=== PATIENT | female | born 1990 | race Caucasian/White ===

== ENCOUNTER → 2017-06-02 | Day surgery (SDC) | payer BC ==
[2017-05-24 14:57] VITALS: BMI 49.0
--- NOTE | 2017-05-24 15:19 | PAT Medication Instructions ---
Service Date May 24, 2017. Current Home Medication List Control Pills ( Control Pills), 1 TAB PO QAM Ibuprofen (Advil), 400 MG PO PRN Medication Instructions For Your Scheduled Surgery - Hold the following medications the morning of surgery: Ibuprofen (Advil), 400 MG PO PRN (otherwise okay to continue per surgeon) - Take the following medications the morning of surgery with a sip of water OTHERWISE NOTHING TO EAT OR DRINK AFTER MIDNIGHT: Control Pills ( Control Pills), 1 TAB PO QAM If you have any questions please call us at [phone] or [phone] or [phone]
[2017-05-24 16:08] LABS: BASO % 0.1 %; BASO ABS # 0.01 K/uL (0-0.2); COMPLETE YES; EOS % 1.8 %; HEMATOCRIT 40.3 % (37-47); IG% 0.1 %; LYMPH % 27.2 %; LYMPH ABS # 2.02 K/uL (1.2-3.4); MEAN CELL VOLUME 89.6 fL (80-100); MEAN CORPUSCULAR HEMOGLOBIN 30.4 pg (25-34); MEAN PLATELET VOLUME 9.4 fL (7.4-10.4); MONO % 4.6 %; NEUT % 66.2 %; PLATELET COUNT 269 K/uL (130-400); WHITE BLOOD COUNT 7.42 K/uL (4.8-10.8)
[2017-05-24 16:16] LABS: BUN/CREATININE RATIO 16.5 (10-20); CALCIUM 9.2 mg/dl (8.5-10.1); CREATININE 0.71 mg/dl (0.60-1.20); POTASSIUM 4.4 mmol/L (3.5-5.1)
[~2017-06-02] VITALS: Ht 165.1 cm; Wt 133.9 kg
[~2017-06-02] MED LIST: ATROPINE SULFATE 0.1 MG/ML 5ML SYR IV PRN; BCPILLS PO; BUPIVACAINE 0.5 % 5 MG/1 ML MPF 30ML VIAL ONE; DEXAMETHASONE SOD INJ 4 MG/ML VIAL ONE; EpHEDrine SULFATE INJ 50 MG/ML AMP IV PRN; FENTANYL CITRATE INJ 50 MCG/1 ML 2 ML VIAL ONE; GLYCOPYRROLATE INJ 0.2 MG/ML VIAL ONE; HYDROmorphone INJ 1 MG/ML SYR IV PRN; IBUP-1050 PO; IBUPROFEN 600 MG TAB PO PRN; KETOROLAC TROMETHAMINE 30 MG/ML VIAL IV. PRN; LACTATED RINGER'S 1000ML 1,000 ML IV SCH; LIDOCAINE HCL 2% 2 ML VIAL (20MG/ML) ONE; METOCLOPRAMIDE HCL INJ 5 MG/ML 2 ML VIAL IV PRN; MIDAZOLAM HCL 1 MG/ML 2ML VIAL ONE; NEOSTIGMINE METHYLSULFATE 5 MG/5 ML SYR ONE; ONDANSETRON INJ 2 MG/ML 2 ML VIAL IV PRN; ONDANSETRON INJ 2 MG/ML 2 ML VIAL ONE; OXYC-57 PO; OXYCODONE/ACETAMINOPHEN 5-325 TAB PO PRN; PROPOFOL IV EMULSION 10 MG/ML 20 ML VIAL IV ONE; ROCURONIUM BROMIDE 10 MG/ML 5 ML VIAL ONE; SODIUM CHLORIDE 0.9% 1000ML 1,000 ML IV SCH
[2017-06-02 06:42] VITALS: BP 114/63; PULSE 73; TEMP 37.2; O2SAT 98; Ht 165.1 cm; Wt 133.9 kg
--- NOTE | 2017-06-02 07:56 | History & Physical Bridge Note ---
H&P Re-Evaluation Bridge Note: I have examined the patient, reviewed the History & Physical and in the interval since the performance of the History & Physical I have noted the following changes of clinical significance: No changes noted
--- NOTE | 2017-06-02 10:18 | [facility] Post Operative Brief Note ---
Immediate Operative Summary Operative Date Jun 02, 2017. Pre-Operative Diagnosis Permanent Sterilization Post-Operative Diagnosis Same as preop Procedure(s) Performed Laparoscopic Tubal Ligation Surgeon Dr. Ayala Crime Lab Technician Surgeon(s) None Estimated Blood Loss 5 ML Findings dictated Fluids (cc crystalloids) 1200 Specimens None per Surgeon Drains none Anesthesia general Complication(s) None Disposition Recovery Room / PACU
--- NOTE | 2017-06-02 10:22 | Discharge Instructions ---
Discharge Instructions Date of Service Jun 02, 2017. Admission Reason for Admission: Undesired Fertility Discharge Discharge Diagnosis / Problem: postop Discharge Goals Goal(s): Routine recovery after surgery Activity Recommendations Activity Limitations: as noted below ACTIVITY RECOMMENDATIONS: * Rest the first 2-3 days. You should be back to your normal activity levels by day 3. * No heavy lifting for 2 weeks. * No intercourse, tampons or douching for 1-2 weeks. * You may shower the next day. * Do not drive anytime that you are taking narcotic pain medicines. RETURN TO SCHOOL/WORK: * May return to school or work after 2-3 days. DIET: Nausea may occur in the immediate post-operative period. If so, take clear liquids such as tea, bouillon, apple juice until all nausea has subsided, then resume usual diet. MEDICATIONS: Resume previous medications unless instructed otherwise by your surgeon. Ibuprofen 200mg 2-3 tablets every 4-6 hours as needed -- OR -- Aleve 2 tablets every 8-12 hours as needed for post-operative discomfort Medications are over the counter. Tylenol may be used if above medications are contraindicated or not preferred. Medication should be taken with food or milk. Do not take on an empty stomach. SPECIAL CARE INSTRUCTIONS: * Check temperature twice daily for one week. report any elevation over 101 degrees. * You may experience some vagina spotting and/or bleeding. This is normal for 1 -2 weeks and should not be heavier than a normal period. If it is unusual in amount, call your physician. * Post-operative discomfort may consist of a sore throat, a "bloated" feeling and pain in the shoulders. these are normal symptoms, which usually only last for 2-3 days. * Remove band-aids tomorrow and shower. There is no need to replace band-aids unless there is drainage or discomfort. FOLLOW UP VISIT: Call your doctor's office for a post-operative 2 week visit if not already scheduled. . Current Hospital Diet Patient's current hospital diet: Discharge Diet Recommended Diet: Regular Diet Procedures Procedures Performed: Laparoscopic Tubal Ligation Pending Studies Studies pending at discharge: no Medical Emergencies . Who to Call and When: Medical Emergencies: If at any time you feel your situation is an emergency, please call 911 immediately. . Non-Emergent Contact Non-Emergency issues call your: Specialist . . "Provider Documentation" section prepared by Jerardo Ayala. . VTE Core Measure Inpt VTE Proph given/why not?: Treatment not indicated
[2017-06-02] MEDS: FENTANYL CITRATE INJ 50 MCG/1 ML 2 ML VIAL IV PRN ×2 (10:36→10:41)
--- NOTE | 2017-06-02 11:04 | OPERATIVE REPORT ---
DATE OF OPERATION: 06/02/2017 INDICATION FOR SURGERY: Undesired fertility. PREOPERATIVE DIAGNOSIS: Undesired fertility. POSTOPERATIVE DIAGNOSIS: Same. PROCEDURE: Laparoscopic tubal fulguration. SURGEON: Dr. Ayala. ELECTRICAL SYSTEM SPECIALIST: None. ESTIMATED BLOOD LOSS: 5 mL. IV FLUIDS: 1200 mL. URINE OUTPUT: 200 mL clear urine at the beginning of the procedure. ANESTHESIA: General. PATHOLOGIES: None. FINDINGS: No lesions seen in the vagina or cervix. Abdominal findings: Pelvis appears unremarkable. Uterus, tubes, and bilateral adnexa appear unremarkable as well. PROCEDURE IN DETAIL: The patient was taken to the operating room where she was prepped and draped in normal sterile fashion in dorsal lithotomy position. Bladder was catheterized and 200 mL of clear urine was obtained. A weighted speculum was placed in the vagina. Christianson retractor was used to retract the anterior part of the vagina. Single tooth tenaculum used to grab the anterior cervix. A Flowbox uterine manipulator placed in the uterus to help manipulate the uterus during laparoscopy. Attention was paid to the abdominal part of the surgery where an infraumbilical incision was made with a scalpel. The fascia was identified and grabbed with 2 Kochers. The Veress needle was introduced into the abdomen at a 45-degree angle while tenting up the abdomen. Intra-abdominal placement was confirmed with a water filled syringe. Abdomen was insufflated with CO2 gas of 3-1/2 liters. The Veress needle was removed and the trocar introduced into the abdominal cavity at a 45-degree angle while tenting up the abdomen. This was done under direct visualization. Once inside the abdomen, the laparoscope was repositioned. A blunt probe was passed through the accessory port of the operative scope and used to move the bowel out of the pelvis. The uterus, tubes, and adnexa were clearly identified, as described in the findings. The mid portion of the right fallopian tube was grabbed with a Kleppinger and fulgurated x3. Same procedure was performed on the contralateral side. There was good hemostasis at end of the procedure. The Kleppinger was removed, as well as the laparoscope. The fascia was closed with 0 Vicryl. SubQ space was closed with plain suture and skin was closed with 4-0 Monocryl. Attention was paid back to the vaginal part of the operation where the single tooth tenaculum, the trocar and uterine manipulator were removed. All instruments are removed from the operative field and accounted for x2 including needles and sponges. The patient is doing well in recovery in stable condition. I attest to the content of the Intraoperative Record and any orders documented therein. Any exception s are noted below.
--- NOTE | 2017-06-02 11:07 | Anesthesiology Progress Note ---
Anesthesia Post Op Note Date & Time Jun 02, 2017 at 11:07 Vital Signs Pain Intensity: 3 Vital Signs Past 12 Hours Date Time Temp Pulse Resp B/P (MAP) Pulse Ox O2 Delivery O2 Flow Rate FiO2 06/02/17 11:00 36.4 71 19 94/67 97 Room Air 06/02/17 10:50 60 15 107/68 93 Room Air 06/02/17 10:40 58 14 94/65 100 Oxymask 06/02/17 10:30 65 20 124/77 100 Oxymask 10 06/02/17 10:20 63 18 128/80 97 Oxymask 10 06/02/17 10:13 36.4 92 10 140/82 99 Oxymask 10 06/02/17 06:42 37.2 73 18 114/63 (80) 98 Room Air Notes Mental Status: alert / awake / arousable, participated in evaluation Pt Amnestic to Procedure: Yes Nausea / Vomiting: adequately controlled Pain: adequately controlled Airway Patency, RR, SpO2: stable & adequate BP & HR: stable & adequate Hydration State: stable & adequate Anesthetic Complications: no major complications apparent
[2017-06-02 11:10] VITALS: BP 124/57; PULSE 61; TEMP 36.6; O2SAT 94
[2017-06-02 11:42] VITALS: BP 123/69; PULSE 63; O2SAT 96
[2017-06-02 12:10] VITALS: BP 122/80; PULSE 66; TEMP 36.7; O2SAT 100
== END | disposition home or self-care (01) ==
LOC: C.ACU 06:12
PROVIDERS: ATTEND Obstetrics & Gynecology
DX: Z30.2 Encounter for sterilization (principal)